=== PATIENT | female | born 1980 ===

== ENCOUNTER 2017-01-16 10:52 | Emergency (ER) | payer MEDICAID ==
[2017-01-16 10:59] VITALS: BMI 28.8
[2017-01-16 11:04] VITALS: RESP 18; TEMP 97.4
--- NOTE | 2017-01-16 11:12 | C.PDOC ---
History Of Present Illness 36 y/o female c/o lower back pain, body aches, subjective fevers for 1 day. Patient unsure if she is . Denies cough, nausea, vomiting, diarrhea, or other associated symptoms. Time Seen by Provider: 01/16/17 11:09 Chief Complaint (Nursing): Back Pain History Per: Patient History/Exam Limitations: no limitations Onset/Duration Of Symptoms: Days Current Symptoms Are (Timing): Still Present Quality Of Discomfort: "Pain" Previous Symptoms: None Recent travel outside of the [place]: No Past Medical History Reviewed: Historical Data, Nursing Documentation, Vital Signs Vital Signs: Last Vital Signs Temp 97.4 F L 01/16/17 11:01 Pulse 85 01/16/17 12:22 Resp 18 01/16/17 12:22 BP 132/75 01/16/17 12:22 Pulse Ox 98 01/16/17 12:22 - Medical History PMH: No Chronic Diseases Family History: States: Unknown Family Hx - Social History Hx Alcohol Use: No Hx Substance Use: No Review Of Systems Except As Marked, All Systems Reviewed And Found Negative. Constitutional: Positive for: Fever (subjective), Malaise Cardiovascular: Negative for: Chest Pain Respiratory: Negative for: Cough, Shortness of Breath Gastrointestinal: Negative for: Nausea, Vomiting, Abdominal Pain Musculoskeletal: Positive for: Back Pain Skin: Negative for: Rash Neurological: Negative for: Headache, Dizziness Physical Exam - Physical Exam Appears: Non-toxic, Other (obsese) Skin: Normal Color, Warm, Dry Head: Atraumatic, Normacephalic Oral Mucosa: Moist Chest: Symmetrical Cardiovascular: Rhythm Regular, No Murmur Respiratory: Normal Breath Sounds, No Rales, No Rhonchi, No Wheezing Gastrointestinal/Abdominal: Soft, No Tenderness, No Guarding, No Rebound Back: Normal Inspection, No Vertebral Tenderness, No Paraspinal Tenderness Extremity: Normal ROM, Capillary Refill (< 2 sec.) Neurological/Psych: Oriented x3, Normal Speech, Normal Cognition ED Course And Treatment - Laboratory Results Lab Interpretation: Normal (ua neg.) Urine POC: Negative O2 Sat by Pulse Oximetry: 100 (RA) Pulse Ox Interpretation: Normal Progress Note: tylenol PO Reevaluation Time: 12:18 Reassessment Condition: Improved Medical Decision Making Medical Decision Making: early viral syndrome, body aches, UA/preg neg. Disposition Doctor Will See Patient In The: Office Counseled Patient/Family Regarding: Studies Performed, Diagnosis - Disposition Referrals: [facility] [Outside] [facility] [Outside] Disposition: HOME/ ROUTINE Disposition Time: 12:18 Condition: GOOD Additional Instructions: Sigue Tylenol/Ibuprofeno para los satya del cuerpo Examenes de la orina son NEGATIVOS de infeccion y embarraso. Sigue en [facility]. Instructions: Viral Syndrome (ED) Forms: [employer] (Occitan) Print Language: LATVIAN - Clinical Impression Clinical Impression: Body aches - Scribe Statement The provider has reviewed the documentation as recorded by the Scribe SM All medical record entries made by the Scribe were at my direction and personally dictated by me. I have reviewed the chart and agree that the record accurately reflects my personal performance of the history, physical exam, medical decision making, and the department course for this patient. I have also personally directed, reviewed, and agree with the discharge instructions and disposition.
[2017-01-16 12:05] LABS: URINE BILIRUBIN NEGATIVE (NEGATIVE); URINE BLOOD NEGATIVE (NEGATIVE); URINE COLOR Colorless (YELLOW); URINE GLUCOSE (UA) NORMAL (Normal); URINE KETONE NEGATIVE (NEGATIVE); URINE LEUKOCYTE ESTERASE NEG Leu/uL (Negative); URINE PROTEIN NEGATIVE (NEGATIVE); URINE UROBILINOGEN NORMAL mg/dL (0.2-1.0)
[2017-01-16 12:23] VITALS: BP 132/75; PULSE 85
[2017-01-16 13:00] VITALS: O2SAT 100
== END 2017-01-16 12:23 | disposition home or self-care (01) ==
LOC: C.ER 10:52
DX: R52 Pain, unspecified (principal)

== ENCOUNTER 2018-02-23 12:23 | Emergency (ER) | payer OTHER ==
[2018-02-23 12:23] VITALS: BMI 28.8
[2018-02-23 12:29] VITALS: RESP 18
[2018-02-23] MEDS ORDERED: Amoxicillin-Clav 875-125 mg Tab PO STA (13:08)
--- NOTE | 2018-02-23 13:24 | C.PDOC ---
History Of Present Illness 37 year old female with a history of asthma presents to the emergency department with complaints of congestion and runny nose for the last 5 days. Patient states that as of 2 days ago, she feels greater pressure in her face associated with pain. She denies cough, vomiting, fever, rash, and recent travel. Time Seen by Provider: 02/23/18 12:32 Chief Complaint (Nursing): Cough, Cold, Congestion History Per: Patient History/Exam Limitations: None Onset/Duration Of Symptoms: Days (5) Current Symptoms Are (Timing): Still Present Past Medical History Reviewed: Historical Data, Nursing Documentation, Vital Signs Vital Signs: Last Vital Signs Temp 98.7 F 02/23/18 12:27 Pulse 73 02/23/18 12:27 Resp 18 02/23/18 12:27 BP 118/83 02/23/18 12:27 Pulse Ox 98 02/23/18 12:27 - Medical History PMH: No Chronic Diseases Surgical History: (2) Family History: States: No Known Family Hx - Social History Hx Alcohol Use: No Hx Substance Use: No Review Of Systems Except As Marked, All Systems Reviewed And Found Negative. Constitutional: Negative for: Fever, Chills ENT: Positive for: Nose Pain, Nose Discharge, Nose Congestion Respiratory: Negative for: Cough Gastrointestinal: Negative for: Vomiting Skin: Negative for: Rash Physical Exam - Physical Exam Appears: Well, Non-toxic, No Acute Distress Skin: Warm, Dry, No Rash Head: Atraumatic, Normacephalic, Tenderness (maxillary sinus tenderness) Eye(s): bilateral: Normal Inspection, PERRL, EOMI Ear(s): Bilateral: Normal Oral Mucosa: Moist Tongue: Normal Appearing, No Swelling Throat: Normal, No Erythema, No Exudate Neck: Normal ROM, Supple Chest: Symmetrical, No Tenderness Cardiovascular: Rhythm Regular, No Friction Rub, No Murmur Respiratory: No Rales, No Rhonchi, No Wheezing Gastrointestinal/Abdominal: Normal Exam, Soft, No Tenderness Extremity: Normal ROM, No Swelling Neurological/Psych: Oriented x3, Normal Speech, Normal Cognition, Normal Motor Gait: Steady ED Course And Treatment O2 Sat by Pulse Oximetry: 98 (RA) Pulse Ox Interpretation: Normal Progress Note: Plan: Amoxil 1 tab PO. Claritin 10mg PO Disposition - Disposition Referrals: [facility] [Outside] Disposition: HOME/ ROUTINE Disposition Time: 13:52 Condition: STABLE Additional Instructions: Follow up with the medical doctor within 1-2 days. Return if worsened. 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 - Scribe Statement The provider has reviewed the documentation as recorded by the Scribe (Devon Whyte) All medical record entries made by the Scribe were at my direction and personally dictated by me. I have reviewed the chart and agree that the record accurately reflects my personal performance of the history, physical exam, medical decision making, and the department course for this patient. I have also personally directed, reviewed, and agree with the discharge instructions and disposition.
[2018-02-23] MEDS ORDERED: Amoxicillin-Clav 875-125 mg Tab PO ONE (13:39)
[2018-02-23 13:47] VITALS: BP 133/93; PULSE 69; TEMP 98.3
[2018-02-23 13:48] VITALS: O2SAT 98
== END 2018-02-23 14:13 | disposition home or self-care (01) ==
LOC: C.ER 12:23
DX: J32.9 Chronic sinusitis, unspecified (principal)